=== PATIENT | female | born 1960 | race Caucasian/White ===

== ENCOUNTER → 2017-04-25 | Outpatient (CLI) | payer BC | LOC: FIMAGING 10:17 | PROVIDERS: ATTEND Internal Medicine Hematology & Oncology | DX: Z12.39 Encounter for other screening for malignant neoplasm of breast (principal); N63 Unspecified lump in breast; Z85.3 Personal history of malignant neoplasm of breast | CPT/HCPCS: G0204 ==

== ENCOUNTER → 2017-10-17 | Outpatient (CLI) | payer BC | LOC: BMCIMAGING 16:19 | PROVIDERS: ATTEND Family Medicine | DX: M54.2 Cervicalgia (principal) ==

== ENCOUNTER → 2018-04-27 | Outpatient (CLI) | payer BC | LOC: FIMAGING 10:42 | PROVIDERS: ATTEND Internal Medicine Hematology & Oncology | DX: Z12.31 Encounter for screening mammogram for malignant neoplasm of breast (principal) ==

== ENCOUNTER 2019-03-15 13:26 | Emergency (ER) | payer BC ==
--- NOTE | 2019-03-15 13:34 | EDPHY ---
H & P Time Seen by Provider: 03/15/19 13:34 HPI/ROS: CHIEF COMPLAINT: Left arm pain following mechanical fall HISTORY OF PRESENT ILLNESS: Patient presents the ED with complaints of left arm pain following mechanical fall. She did not strike her head or lose consciousness. She has no complaints of headache, neck pain or focal neurologic symptoms. The patient has pain in her left humerus and left forearm. Patient is not anticoagulated. She denies additional injury. REVIEW OF SYSTEMS: A comprehensive 10 point review of systems is otherwise negative aside from elements mentioned in the history of present illness. Source: Patient Exam Limitations: No limitations - Medical/Surgical History PMH: Past medical history: Noncontributory - Family History Significant Family History: No pertinent family hx - Social History Smoking Status: Never smoked - Physical Exam Exam: General Appearance: Alert, no distress Head: Atraumatic Eyes: Pupils equal, round, reactive ENT, Mouth: No hemotympanum, no oral trauma Neck: Nontender, trachea midline Respiratory: No chest wall tender, no subcutaneous air, lungs clear bilaterally Cardiovascular: Regular rate and rhythm Abdomen: Abdomen is soft and nontender, pelvis stable Skin: No lacerations, No abrasion Back: No midline T/L/S pain Extremities: Tenderness to palpation left proximal humerus, tenderness to palpation left wrist Neurological: A&Ox3, normal motor function, normal sensory exam Constitutional: Initial Vital Signs Temperature (C) 36.3 C 03/15/19 13:37 Heart Rate 78 03/15/19 13:37 Respiratory Rate 16 03/15/19 13:37 Blood Pressure 123/86 H 03/15/19 13:37 O2 Sat (%) 97 03/15/19 13:37 O2 Delivery Mode Room Air Allergies/Adverse Reactions: Penicillins Allergy (Verified 03/15/19 13:41) Medical Decision Making - Diagnostics Imaging Results: Imaging Impressions Forearm X-Ray 03/15/19 13:44 Impression: Nothing acute identified. 2. Left Forearm, Two Views History: Pain, post trauma. Findings: There is an acute transverse fracture coursing through the distal radial metaphysis. There is a suggestion of dorsal angulation of the distal radius. The more proximal radial ulnar shafts look normal. Impression: Distal radial fracture. Consider obtaining dedicated wrist x-rays centered at the wrist, to best evaluate the alignment of the distal radius. Humerus X-Ray 03/15/19 13:44 Impression: Nothing acute identified. 2. Left Forearm, Two Views History: Pain, post trauma. Findings: There is an acute transverse fracture coursing through the distal radial metaphysis. There is a suggestion of dorsal angulation of the distal radius. The more proximal radial ulnar shafts look normal. Impression: Distal radial fracture. Consider obtaining dedicated wrist x-rays centered at the wrist, to best evaluate the alignment of the distal radius. ED Course/Re-evaluation: Patient presents the emergency department for evaluation of left forearm and shoulder pain following mechanical fall. The patient is noted to have a minimally displaced distal radius fracture. There is no evidence of a shoulder fracture dislocation. The patient has been placed in a sugar-tong splint and given a sling. She will be advised to follow up with our on-call orthopedic surgeon Dr. Garcia ([facility] [place] [facility]) for recheck and likely casting this week. Differential Diagnosis: Differential diagnosis considered includes fracture, sprain, dislocation Departure - Departure Disposition: Home, Routine, Self-Care Clinical Impression: Distal radius fracture Qualifiers: Encounter type: initial encounter Fracture type: closed Fracture morphology: Colles' Laterality: left Qualified Code(s): S52.532A - Colles' fracture of left radius, initial encounter for closed fracture Condition: Good Instructions: Wrist Fracture in Adults (ED) Additional Instructions: 1. Please follow up with the orthopedic surgeon at [facility] for further evaluation and management of your wrist fracture. Wear splint and sling until seen until that time. 2. Take Ibuprofen or Motrin 600 mg by mouth three times a day. 3. [place] as needed for severe pain Referrals: Sapna Saeed MD [Primary Care Provider] - As per Instructions Alonzo Garcia MD [Medical Doctor] - As per Instructions
[2019-03-15] MEDS ORDERED: ONDANSETRON DISINTEGRATING 4 MG TAB ONE (15:01)
[2019-03-15 15:33] VITALS: BP 124/74
== END 2019-03-15 15:33 | disposition home or self-care (01) ==
PROC: 2W3DX1Z Immobilization of Left Lower Arm using Splint (ICD-10-PCS; principal; 2019-03-15)
DX: S52.532A Colles' fracture of left radius, initial encounter for closed fracture (principal); W19.XXXA Unspecified fall, initial encounter
CPT/HCPCS: A4565; L4350